=== PATIENT | female | born 1995 | race Caucasian/White ===

== ENCOUNTER 2017-12-21 21:18 | Emergency (ER) | payer MEDICAID ==
[~2017-12-21] VITALS: Ht 160 cm; Wt 54.4 kg
[2017-12-21 21:29] VITALS: BP 131/79
== END 2017-12-21 21:45 | disposition left against medical advice (07) ==
LOC: EDBD 21:18 → ER 21:18
DX: R10.9 Unspecified abdominal pain (principal); R52 Pain, unspecified; Z53.21 Procedure and treatment not carried out due to patient leaving prior to being seen by health care provider

== ENCOUNTER 2021-11-09 03:49 | Emergency (ER) | payer MEDICAID ==
[~2021-11-09] VITALS: Ht 162.6 cm; Wt 59.0 kg
[2021-11-09 03:55] VITALS: BP 138/90
== END 2021-11-09 05:03 | disposition home or self-care (01) ==
LOC: EDBD 03:49 → ER 04:01
DX: K59.00 Constipation, unspecified (principal)